=== PATIENT | male | born 1960 | race Caucasian/White ===

== ENCOUNTER 2022-03-28 23:25 | Emergency (ER) | payer SELFPAY ==
[~2022-03-28] VITALS: Ht 172.7 cm; Wt 65.0 kg
[2022-03-28] MEDS ORDERED: MIDAZOLAM HCL 2 MG/2 ML VIAL IV ONE (23:45)
[2022-03-28] MEDS ORDERED: SODIUM CHLORIDE 0.9% 1,000 ML IV ONE (23:45)
[2022-03-29 00:11] LABS: BASOPHILS % 1.2 % (0.0-2.0); EOSINOPHILS % 4.2 % (0.0-5.0); HEMATOCRIT. 39.7 % (42.0-52.0); HEMOGLOBIN. 13.1 g/dL (14.0-18.0); LYMPHOCYTES % 23.5 % (20.0-50.0); MEAN CORPUSCULAR HEMOGLOBIN 29.2 pg (28.0-32.0); MEAN CORPUSCULAR VOLUME 88.2 fL (80.0-94.0); MEAN PLATELET VOLUME 8.1 fl (7.4-10.4); MONOCYTES % 4.9 % (2.0-8.0); NEUTROPHILS % 66.2 % (40.0-76.0); PLATELET 233 x1000/uL (130-400)
[2022-03-29 00:16] LABS: CHLORIDE 103 mEq/L (98-107)
[2022-03-29 00:30] LABS: ETHANOL BLOOD 357 mg/dL
[2022-03-29 01:39] VITALS: BP 115/70
== END 2022-03-29 01:47 | disposition left against medical advice (07) ==
LOC: ER 23:25
DX: F10.129 Alcohol abuse with intoxication, unspecified (principal); Y90.8 Blood alcohol level of 240 mg/100 ml or more
CPT/HCPCS: 36415; 80053; 80320; 85025; 96361; 96374; 99283; J2250; J7030; G0480